=== PATIENT | male | born 1960 | race Caucasian/White ===

== ENCOUNTER 2018-12-21 10:49 | Outpatient (RCR) | payer OTHER ==
--- NOTE | 2018-10-12 11:42 | PT INITIAL EVALUATION ---
MEDICAL DIAGNOSIS: R) aldana; dehisced surgical wound from pin site s/p TKA TREATMENT DIAGNOSIS: same DATE OF ONSET: 07/26/18 SUBJECTIVE: Per pt report, Pt underwent a R) TKA with Dr. Billie Gaytan in [place] in 2018. Pt states that this wound noted today was the pin site required to position prosthesis during surgery. After surgery it did not heal well and pt went in for a surgical debridement of this area with Dr. Gaytan again in July 2018. At that time, pt reports that the area was stitched closed and a prevena wound vac was placed over the stitches. After 10 days the unit quit and pt removed that dressing as he had been instructed by surgeon. Pt then followed up with Dr. Gaytan again to have the stitches removed on 10/02/18 and the wound was noted to be dehisced and non-healing. Pt states he then went to urgent care locally on 10/03/18 and was quickly referred here for further wound care after they prescribed an antibiotic. PA was prompt in authorizing care and pt was seen for eval on 10/05/18 to begin wound care with possibility of wound vac if needed. REHAB PROBLEM LIST: Non-healing wound to depth of bone at R) Aldana. PREVIOUS MEDICAL HISTORY: Pt denies DM and indicates that he is not on any anticoagulation medication. Pt receives PCP services through the PA. OCCUPATION: Pt notes that he previously worked at a [employer] but this work is no longer an option due to the strain on his knees. Pt indicates that he is currently unemployed. OBJECTIVE: Wound at R) anterior aldana: 2.5cm L x 1.6cm W x 1.3cm D. Bone is clearly visible and palpable in base of wound in an area measuring 1cm L x 0.5cm W. ASSESSMENT: Non-excisional debridement completed with the use of tweezers to a depth of subcutaneous tissue in order to remove loosely adhered yellow slough at wound edges. Wound cleansed with sterile saline and silver calcium alginate packed gently into wound. Periwound area treated with marathon skin protectant and red area of inflammation outlined with indelible marker. This was then covered with silicone border 6x6 dressing and edges reinforced with tegaderm to ensure adequate seal to allow pt to shower without removing dressing. Pt to return on [place] 5/13/19 to determine if this will be an effective treatment, or if wound vac will be necessary to close this site. Area is somewhat small for a wound vac, however a trial of snap vac may be an option to encourage granulation if current conservative treatment is less than optimal. Short Term Goals 1. Pt to be compliant with maintaining dressing clean, dry and intact between PT visits. 2. Base of wound to gradually granulate closed over bone and fill defect to level of epidermis. 3. Epidermis to close 100% over wound without signs or symptoms of infection. Patient's Goals Wound to heal without further complications PLAN: Patient to be seen for non-excisional, conservative, selective debridement in order to optimize wound healing and prevent further epibole of epidermal edges. Selection of advanced wound care products including collagen and/or wound vac application depending on drainage management and granulation to ensure optimal and efficient wound healing in order to decrease risk of infection with bone exposed. 2x/Week for up to 3 months Thank you for this referral. If you have any questions, comments, or concerns about this report or plan, please contact me at . H. Sol Montero, PT, MPT, OMS MTDD
--- NOTE | 2018-12-23 11:59 | PT PLAN OF CARE ---
Physician: Lucila Koenig; Dr. Casey Ulloa Patient is being seen: Ruben Cortés Therapist: Jus Montero, PT, MPT, OMS Medical Diagnosis: R) aldana; dehisced surgical wound Treatment Diagnosis: same Date of Onset: 07/26/18 Date of Initial Evaluation: 10/05/18 Date patient was last seen: 12/21/18 Number of treatments: 14 Number of cancellations/No shows: 1 INTERVENTIONS: Patient seen for non-excisional, conservative, selective debridement in order to optimize wound healing and prevent further epibole of epidermal edges. Selection of advanced wound care products including collagen and/or wound vac application depending on drainage management and granulation to ensure optimal and efficient wound healing in order to decrease risk of infection with bone exposed. GOALS: (MET) 1. Pt to be compliant with maintaining dressing clean, dry and intact between PT visits. 2. Base of wound to gradually granulate closed over bone and fill defect to level of epidermis. 3. Epidermis to close 100% over wound without signs or symptoms of infection. PATIENT'S GOAL: (Met) Wound to heal without further complications Status of Patient's Goals: Met Patient Compliance: Good overall Prognosis: Fair Reasons for continuing therapy: None at this time, as wound appears fully epithelialized. Periwound skin somewhat irritated potentially from adhesive. Pt reminded to avoid scratching and apply ointment prescribed by [facility] as need. Thank you for this referral. If you have any questions, comments, or concerns about this report or plan, please contact me at . H. Sol Montero, PT, MPT, OMS MTDD
== END 2018-12-21 11:26 | disposition home or self-care (01) ==
LOC: PT 10:49
PROVIDERS: ATTEND Family Medicine
DX: T81.32XA Disruption of internal operation (surgical) wound, not elsewhere classified, initial encounter (principal)
CPT/HCPCS: 97161